=== PATIENT | male | born 2005 | race Caucasian/White ===

== ENCOUNTER 2024-02-27 20:14 | Emergency (ER) | payer BC, SELFPAY ==
[2024-02-27 20:15] VITALS: BP 154/72; BMI 18.0
--- NOTE | 2024-02-27 20:16 | ED.SKININJ ---
HPI-Injury
General
Chief Complaint: Musculo-Skeletal Complaint
Source: patient and ambulance crew
Exam Limitations: none
Time Seen by Provider: 02/27/24 20:16
Nursing documentation reviewed up to this point in time: agreed with
History of Present Illness-Injury
Initial Injury comments:
18-year-old male with no significant past medical history states he was laying on the floor of his room, he moved his left leg a certain way and the left knee 'popped out.' He states as long as he is not moving there is no pain. There is obvious
deformity
Past History
Past History
ED Past Medical History: None
ED Past Surgical History: None
Social History
Tobacco: Non-smoker
Personal: Single
Living: with family
Employment: Student
Review of Systems
Review of Systems
Allergies reviewed?: Yes
All Other Systems: ROS reviewed and negative except as documented in HPI and ROS
Musculoskeletal: Reports other (dislocated patella)
Skin: Reports no symptoms
Neurological: Denies numbness
Phy Exam
Physical Exam
Physical Exam:
GENERAL: No acute distress. A&Ox3.
CONSTITUTIONAL: Afebrile.
RESPIRATORY: Regular respirations, nonlabored, lungs clear.
CARDIOVASCULAR: Regular rate and rhythm, no murmurs, no rubs.
MUSCULOSKELETAL: Obvious deformity of the left knee patella. Distal neurovascular intact. Well perfused.
SKIN: Warm, dry, pink
PSYCH: Normal mood and affect. Well kept, interactive and appropriate
NEUROLOGIC: Awake, alert and oriented.
Course
Orders/Labs/Results
Orders:
Orders
02/27/24 20:22
Knee Immobilizer Left-Treatmen ONCE
Vital Signs
Initial and Last Documented VS:
Initial Vital Signs
Temp Pulse Resp BP Pulse Ox
97.8 F 122 16 154/72 98
02/27/24 20:15 02/27/24 20:15 02/27/24 20:15 02/27/24 20:15 02/27/24 20:15
Last Documented Vital Signs
Temp Pulse Resp BP Pulse Ox
97.8 F 122 16 154/72 96
02/27/24 20:15 02/27/24 20:15 02/27/24 20:15 02/27/24 20:15 02/27/24 20:30
Procedures
Splinting/Sling Placement
Left Knee:
Pre-splint extermity exam: good alignment
Type of splint: knee immobilizer
Splint checked by provider?: Yes
Normal distal neurovascular exam?: Yes
Joint/Fracture Reduction
Left patella:
Indication for procedure:: Dislocated patella
Procedure completed by: I Day [employer]ICIAN
If no, reason: Emergency procedure
Joint reduced: without anesthesia
Injury was: closed
Further treatement: needs re-check only
Post reduction exam: stable
Capillary Refill: normal
Normal distal neurovascular exam?: Yes
MDM/Problems Addressed
MDM/Problems Addressed:
18-year-old male with no significant past medical history states he was laying on the floor of his room, he moved his left leg a certain way and the left knee 'popped out.' He states as long as he is not moving there is no pain. There is obvious
deformity
After patellar reduction, patient is able to move the leg with ease and minimal discomfort.
After knee immobilizer applied, patient out of bed and ambulating well.
Referred to orthopedics for follow-up.
No suspicion of fracture, no imaging indicated.
*Critical Care Note
Total Time (30-74mins, 75-104mins- exclusive of procedures): Not Applicable
ED Attending Note
-
Portions of this chart may have been created with voice recognition software.� Occasional wrong word or��sound alike� substitutions may have occurred due to the inherent limitations of voice recognition software.
Discharge Plan
Departure
Patient Disposition: Home (Routine Discharge)
Date of Disposition: 02/27/24
Time of Disposition: 20:37
Patient with high blood pressure during this ER visit?: No
Condition: Good
Discharge Problem:
Closed dislocation of left patella
Instructions: Knee Immobilizer (DC), Dislocated Kneecap (DC), Using Cold for Pain
Referrals:
Arnaldo Molina MD [Active] - Next open appointment
Activity Restrictions/Additional Instructions:
As we discussed, call the orthopedic doctors office tomorrow and make an appointment for sometime within the next week for recheck. Wear the knee immobilizer when up and around at all times until further instructed by the orthopedic doctor.
Tylenol or ibuprofen as needed for pain
Interventions
Interventions:
*Risk Screen - Suicide Last Done: 02/27/24 20:25
*General Assessment Last Done: 02/27/24 20:25
*Neglect/Abuse Screening Last Done: 02/27/24 20:25
ED- Fall Risk Assessment Last Done: 02/27/24 20:25
*ED COVID-19 Vaccine History Last Done: 02/27/24 21:03
*Nursing Disposition Last Done: 02/27/24 21:03
ED-Musculoskeletal Assessment Last Done: 02/27/24 20:25
Discharge Date and Time
Discharge Date/Time: 02/27/24 21:04
Print Language: [place]ET[place]
== END 2024-02-27 21:04 | disposition home or self-care (01) ==
LOC: EMR 20:14
PROVIDERS: EMERGENCY PHYSICIAN Emergency Medicine; FAMILY PHYSICIAN Family Medicine
DX: S83.005A Unspecified dislocation of left patella, initial encounter (principal); X58.XXXA Exposure to other specified factors, initial encounter
CPT/HCPCS: 99283; 27560; 99282